=== PATIENT | female | born 1980 | race Caucasian/White ===

== ENCOUNTER → 2020-08-06 | Outpatient (CLI) | payer OTHER ==
--- NOTE | 2020-08-06 12:14 | MM ---
Reason for exam: clinical finding. Last mammogram was performed 2 years and 11 months ago. History: Family history of breast cancer in mother at age 54, breast cancer in maternal aunt at age 50, and breast cancer in maternal grandmother at age 50. Took hormonal contraceptives for 6 years. Indicated problem(s): palpable abnormality in both breasts. Physical Findings: Nurse Summary: 1 x 1cm nodule in the left breast at 1 o'clock (nurse ts). MG 3D Diag Mammo W/Cad DEVENDRA Bilateral CC and MLO view(s) were taken. Prior study comparison: August 24, 2017, bilateral MG 3d screening mammo w/cad. The breast tissue is extremely dense which could obscure a lesion on mammography. No significant new findings when compared with previous films. These results were verbally communicated with the patient and result sheet given to the patient on 08/06/20. ASSESSMENT: Incomplete: need additional imaging evaluation, BI-RAD 0 RECOMMENDATION: Ultrasound of the left breast. (palpable)
--- NOTE | 2020-08-06 12:15 | USB ---
Reason for exam: additional evaluation requested from abnormal screening. History: Family history of breast cancer in mother at age 54, breast cancer in maternal aunt at age 50, and breast cancer in maternal grandmother at age 50. Took hormonal contraceptives for 6 years. US Breast Limited LT Left limited breast ultrasound including focal area of concern, retroareolar and axilla demonstrates no cystic or solid lesion seen. Dense breast tissue. These results were verbally communicated with the patient and result sheet given to the patient on 08/06/20. ASSESSMENT: Negative, BI-RAD 1 RECOMMENDATION: Routine screening mammogram of both breasts in 1 year. Manage patient on a clinical basis.
== END | disposition home or self-care (01) ==
LOC: RADMAMWWP 10:05
PROVIDERS: ATTEND Obstetrics & Gynecology
DX: N63.21 Unspecified lump in the left breast, upper outer quadrant (principal); N63.11 Unspecified lump in the right breast, upper outer quadrant; N64.4 Mastodynia; R92.8 Other abnormal and inconclusive findings on diagnostic imaging of breast; Z80.3 Family history of malignant neoplasm of breast
CPT/HCPCS: 77062; 77066

== ENCOUNTER → 2022-04-01 | Outpatient (CLI) | payer BC ==
--- NOTE | 2022-04-02 17:30 | MM ---
Reason for Exam: Screening (asymptomatic). Last mammogram was performed 1 year(s) and 8 month(s) ago. Patient History: Menarche at age 13. First Full-Term at age 24. Patient used Hormonal Contraceptives for 6 years. Maternal grandmother had breast cancer, age 50. Maternal aunt had breast cancer, age 50. Mother had breast cancer under age 50. Last menstrual period: 03/25/2022 Risk Values: Danya 5 year model risk: 1.2%. NCI Lifetime model risk: 17.0%. Film Views: Bilateral CC views were taken. Bilateral MLO views were taken. Prior Study Comparison: 08/24/2017 Bilateral Screening Mammogram, [facility]. 08/06/2020 Bilateral Diagnostic Mammogram, [facility]. 10/21/2020 Bilateral Diagnostic Breast MRI, [facility]. 11/08/2021 Bilateral US breast BILAT - [address], [facility]. Tissue Density: The breast tissue is extremely dense which could obscure a lesion on mammography. Findings: Analyzed By CAD. There is no suspicious group of microcalcifications or new suspicious mass in either breast. Overall Assessment: Benign, BI-RAD 2 Management: Screening Mammogram of both breasts in 1 year. A clinical breast exam by your physician is recommended on an annual basis and results should be correlated with mammographic findings. Electronically signed and approved by: Jignesh English D.O. Radiologis
== END | disposition home or self-care (01) ==
LOC: RADMAMWWP 08:12
PROVIDERS: ATTEND Obstetrics & Gynecology
DX: Z12.31 Encounter for screening mammogram for malignant neoplasm of breast (principal); Z80.3 Family history of malignant neoplasm of breast
CPT/HCPCS: 77063; 77067

== ENCOUNTER → 2023-04-02 | Outpatient (CLI) | payer BC ==
--- NOTE | 2023-04-03 09:04 | MM ---
Reason for Exam: Screening (asymptomatic). Last screening mammogram was performed 12 month(s) ago. Patient History: Menarche at age 13. First Full-Term at age 24. Patient has history of breast feeding. Patient used Hormonal Contraceptives for 6 years. Maternal grandmother had breast cancer, age 50. Maternal aunt had breast cancer, age 50. Mother had breast cancer, age 53. Risk Values: Danya 5 year model risk: 1.3%. NCI Lifetime model risk: 16.8%. Prior Study Comparison: 08/24/2017 Bilateral Screening Mammogram, [facility]. 08/06/2020 Bilateral Diagnostic Mammogram, [facility]. 04/01/2022 Bilateral MG 3D screening mammo w/cad, [facility]. Tissue Density: The breast tissue is extremely dense which could obscure a lesion on mammography. Findings: Analyzed By CAD. There is no suspicious new group of microcalcifications or new suspicious mass in either breast. Overall Assessment: Negative, BI-RAD 1 Management: Screening Mammogram of both breasts in 1 year. Some advise bilateral breast ultrasound surveillance in patients with background extremely dense tissue. Patient should continue monthly self-breast exams. A clinical breast exam by your physician is recommended on an annual basis. This exam should not preclude additional follow-up of suspicious palpable abnormalities. Note on Danya scores and lifetime risk: 1. A Danya score greater than 3% is considered moderate risk. If this is the case, consider specialist referral to assess eligibility for a risk reducing agent. 2. If overall lifetime risk for the development of breast cancer is 20% or higher, the patient may qualify for future screening with alternating mammogram and breast MRI. Electronically signed and approved by: Art Zelaya M.D.
== END | disposition home or self-care (01) ==
LOC: RADMAMWWP 08:28
PROVIDERS: ATTEND Obstetrics & Gynecology
DX: Z12.31 Encounter for screening mammogram for malignant neoplasm of breast (principal); Z80.3 Family history of malignant neoplasm of breast
CPT/HCPCS: 77063; 77067

== ENCOUNTER → 2024-03-23 | Outpatient (CLI) | payer BC ==
--- NOTE | 2024-03-23 13:40 | MM ---
Reason for Exam: Screening (asymptomatic). Last screening mammogram was performed 12 month(s) ago. Patient History: Menarche at age 13. First Full-Term at age 24. Patient has history of breast feeding. Patient tested for BRCA1 outcome was negative. Currently using Progesterone. Patient used Hormonal Contraceptives for 6 years. Maternal grandmother had breast cancer, age 50. Maternal aunt had breast cancer, age 50. Mother had breast cancer, age 53. Last menstrual period: 03/15/2024 Risk Values: Danya 5 year model risk: 1.4%. NCI Lifetime model risk: 16.7%. Prior Study Comparison: 08/06/2020 Bilateral Diagnostic Mammogram, [facility]. 04/01/2022 Bilateral MG 3D screening mammo w/cad, [facility]. 04/02/2023 Bilateral MG 3D screening mammo w/cad, [facility]. Tissue Density: The breasts are heterogeneously dense, which may obscure small masses. Findings: Analyzed By CAD. Right breast: Asymmetry right breast CC view medially middle depth 4.2 cm from the the nipple. Left breast: There is no suspicious group of microcalcifications or new suspicious mass. Overall Assessment: Incomplete: need additional imaging evaluation, BI-RAD 0 Management: Diagnostic Mammogram of the right breast. [facility] will attempt to contact patient to return for supplemental views and ultrasound if indicated. Patient should continue monthly self-breast exams. A clinical breast exam by your physician is recommended on an annual basis. This exam should not preclude additional follow-up of suspicious palpable abnormalities. Note on Danya scores and lifetime risk: 1. A Danya score greater than 3% is considered moderate risk. If this is the case, consider specialist referral to assess eligibility for a risk reducing agent. 2. If overall lifetime risk for the development of breast cancer is 20% or higher, the patient may qualify for future screening with alternating mammogram and breast MRI. Electronically signed and approved by: Jorge Steen DO
== END | disposition home or self-care (01) ==
LOC: RADMAMWWP 07:07
PROVIDERS: ATTEND Obstetrics & Gynecology
DX: Z12.31 Encounter for screening mammogram for malignant neoplasm of breast (principal); Z80.3 Family history of malignant neoplasm of breast
CPT/HCPCS: 77067

== ENCOUNTER → 2024-03-31 | Outpatient (CLI) | payer BC ==
--- NOTE | 2024-03-31 09:52 | USB ---
Reason for Exam: Additional evaluation requested from abnormal screening. Patient History: Menarche at age 13. First Full-Term at age 24. Patient has history of breast feeding. Patient tested for BRCA1 outcome was negative. Currently using Progesterone. Patient used Hormonal Contraceptives for 6 years. Maternal grandmother had breast cancer, age 50. Maternal aunt had breast cancer, age 50. Mother had breast cancer, age 53. Risk Values: Danya 5 year model risk: 1.4%. NCI Lifetime model risk: 16.7%. Technique: Method: Targeted. Prior Study Comparison: 04/01/2022 Bilateral MG 3D screening mammo w/cad, [facility]. 04/02/2023 Bilateral MG 3D screening mammo w/cad, [facility]. 03/23/2024 Bilateral MG screening mammo w CAD, [facility]. Findings: The medial section of the breast of the right breast, the axilla of the right breast and the retroareolar of the right breast were scanned. No solid or cystic masses are identified. No ultrasound abnormality to correlate with mammographic findings. Additional workup with compression cranial caudal view right breast is recommended. However, patient is refusing mammography at this time. 3-D Mammography would be the preferred method of workup. However, the patient does express interest in an MRI which would be useful, noting the limitations of very dense breasts on mammography and the limitations of specificity of MRI. Overall Assessment: Incomplete: need additional imaging evaluation, BI-RAD 0 Management: Diagnostic Mammogram of the right breast. A clinical breast exam by your physician is recommended on an annual basis and results should be correlated with mammographic findings. This exam should not preclude additional follow-up of suspicious palpable abnormalities. Results were given to the patient verbally at the time of exam. Electronically signed and approved by: Jignesh English D.O. Radiologis
== END | disposition home or self-care (01) ==
LOC: RADMAMWWP 08:29
PROVIDERS: ATTEND Obstetrics & Gynecology
DX: R92.8 Other abnormal and inconclusive findings on diagnostic imaging of breast (principal); Z80.3 Family history of malignant neoplasm of breast

== ENCOUNTER → 2024-08-29 | Outpatient (CLI) | payer BC ==
--- NOTE | 2024-08-29 08:50 | US ---
EXAMINATION TYPE: US pelvic complete DATE OF EXAM: 08/29/2024 COMPARISON: NONE CLINICAL INDICATION: Female, 43 years old with history of R10.2 PELVIC AND PERINEAL PAIN; pelvic pain TECHNIQUE: Transabdominal (TA). Transabdominal grayscale, color Doppler and spectral Doppler sonogr aphic images of the pelvis were acquired. FINDINGS: Date of LMP: 08/24/24 EXAM MEASUREMENTS: Uterus: 9.7x6.0x6.7 cm Endometrial Stripe: 0.6 cm Right Ovary: 3.4x2.4x2.6 cm Left Ovary: 2.8x2.0x2.4 cm 1. Uterus: Retroverted 4.9x3.4x3.0cm heterogenous area measured, nabothian cysts 2. Endometrium: wnl 3. Right Ovary: wnl 4. Left Ovary: wnl 5. Bilateral Adnexa: wnl 6. Posterior cul-de-sac: wnl Retroverted uterus with a 4.9 cm heterogenous lesion identified within the posterior uterine body mos t consistent with an intramural fibroid. Incidental nabothian cysts. Endometrium within normal limits . Both ovaries appear unremarkable. No free fluid. IMPRESSION: 1. No ultrasound evidence for acute pelvic process. 2. Fibroid changes of the uterus. [facility], , 08/29/2024 8:47 AM
--- NOTE | 2024-08-29 08:59 | US ---
EXAMINATION TYPE: US abdomen complete DATE OF EXAM: 08/29/2024 COMPARISON: NONE CLINICAL INDICATION: Female, 43 years old with history of R10.2 PELVIC AND PERINEAL PAIN; pelvic pain TECHNIQUE: Grayscale and color Doppler imaging of the abdomen was performed. FINDINGS: EXAM MEASUREMENTS: Liver Length: 13 cm Gallbladder Wall: 0.1 cm CBD: 0.4 cm Spleen: 9.6 cm Right Kidney: 9.3x3.8x4.4 cm Left Kidney: 10.6x4.0x4.0 cm EXPERIENCE SPECIALIST NOTES: Pancreas: Tail obscured by overlying bowel gas Liver: right lobe hyperechoic area: 1.3x1.2x1.4cm cystic area: 2.0x1.5x1.5cm Gallbladder: wnl Evidence for sonographic Magallon's sign: No CBD: wnl Spleen: wnl Right Kidney: Inferior pole obscured by bowel gas Left Kidney: wnl Upper IVC: wnl Abd Aorta: wnl The liver is homogenous. Noncirrhotic morphology. There is a homogeneous hyperechoic lesion within th e right hepatic lobe measuring up to 1.4 cm. No internal color flow. Additional thin walled anechoic cyst measuring 2.0 cm with thin internal septation. The intrahepatic portion of the IVC and proximal abdominal aorta are within normal limits. There is no evidence of cholelithiasis. Common bile duct is unremarkable. The visualized portions of the pancreas are homogenous. The spleen is unremarkable . Kidneys are symmetric and free of hydronephrosis. No renal lesions are seen. IMPRESSION: 1. No ultrasound evidence for acute abdominal process. 2. Right hepatic lobe 1.4 cm echogenic lesion. Probable hemangioma. Consider further evaluation with CT or MR abdomen with IV contrast ( liver mass protocol) for confirmation. 3. Minimally complex hepatic cyst with thin septation. This can be assessed on #2 recommendation. [facility], , 08/29/2024 8:57 AM
== END | disposition home or self-care (01) ==
LOC: RADUSWWP 07:48
PROVIDERS: ATTEND Family Medicine
CPT/HCPCS: 76700; 76856